=== PATIENT | female | born 1930 | race Caucasian/White ===

== ENCOUNTER 2016-09-09 11:28 | Emergency (ER) | payer MEDICARE ==
[2016-09-09] MEDS ORDERED: Nitroglycerin 0.4 MG TAB 1 EACH ONE (12:04)
[2016-09-09] MEDS ORDERED: Furosemide 20 MG/2 ML VIAL ONE (12:29)
[2016-09-09] MEDS ORDERED: Nitroglycerin 2% Ointment 1 INCH/1 GM Packet ONE (12:29)
[2016-09-09 14:12] LABS: CKMB 5.5 ng/mL (0-6.6); Potassium 3.9 mmol/L (3.5-5.1); Sodium 136 mmol/L (136-145); Troponin I 0.099 ng/mL (< 0.028)
[2016-09-09 14:13] LABS: ALT (SGPT) 18 U/L (8-55); AST (SGOT) 29 U/L (5-34); Albumin 3.8 g/dL (3.4-4.8); Alkaline Phosphatase 92 U/L (40-150); Anion Gap 15 mmol/L (10-20); BUN (Urea Nitrogen) 16 mg/dL (9.8-20.1); Calc. Creatinine Clearance 0 mL/min (70-130); Carbon Dioxide 28 mmol/L (23-31); Chloride 97 mmol/L (98-107); Estimated GFR-MDRD 43; Globulin 4.2 g/dL (2.4-3.5); Glucose 158 mg/dL (83-110)
[2016-09-09 14:17] LABS: Hemoglobin 10.6 g/dL (12.0-16.0); Red Blood Cell (RBC) Count 3.22 mill/uL (4.20-5.40); White Blood Cell (WBC) Count 9.3 thou/uL (4.8-10.8)
[2016-09-09 14:18] LABS: %Lymphocytes 17.8 % (21.0-51.0); %Monocytes 9.9 % (0.0-10.0); %Neutrophils 70.6 % (42.0-75.0); Mean Corpuscular HGB CONC 32.4 g/dL (32.0-36.0); Mean Platelet Volume 10.6 fL (7.4-10.4); Platelet Count 162 thou/uL (130-400); RBC Distribution Width 13.9 % (11.5-14.5)
[2016-09-09 14:19] LABS: #Basophils 0.1 thou/uL (0.0-0.2); #Eosinphils 0.1 thou/uL (0.0-0.7); #Lymphocytes 1.7 thou/uL (1.20-3.40); #Monocytes 0.9 thou/uL (0.11-0.59); #Neutrophils 6.6 thou/uL (1.40-6.50); %Basophils 1.1 % (0.0-1.0); %Eosinophils 0.6 % (0.0-10.0)
--- NOTE | 2016-09-09 15:39 | RAD ---
CHEST ONE VIEW 09/09/16 HISTORY: Dyspnea. Chest pain. FINDINGS: No comparison. The cardiac silhouette is magnified, enlarged, and partially obscured by patchy bibas ilar infiltrates and small bilateral pleural effusions. Pulmonary vasculature is engorged with retic ulonodular interstitial prominence. Mediastinum is midline with aortic calcification. There is no ev idence of pneumothorax. channel opener leads overlie the chest. IMPRESSION: 1. CHF. 2. Atherosclerosis. POS: RUDDY
== END 2016-09-09 13:09 | disposition short-term general hospital (02) ==
LOC: MADERS 11:28
DX: I50.9 Heart failure, unspecified (principal)
CPT/HCPCS: 71010; 80053; 82553; 83880; 84484; 85025; 85379; 96374; J1940